=== PATIENT | male | born 1980 | race Two or more races ===

== ENCOUNTER → 2025-01-29 | Outpatient (CLI) | payer MEDICAID, SELFPAY ==
--- NOTE | 2025-01-29 09:30 | XR_ITS ---
Examination: Esophagram standard Upright PA chest single view Upright soft tissue lateral neck single view Fluoroscopy 28 spot fluoroscopic films of the esophagus Date and time: January 29, 2025 0934 hours INDICATIONS: Difficulty swallowing 1 years TECHNIQUE AND FINDINGS: Upright PA chest single view demonstrates normal heart size, lungs are clear. Soft tissue lateral neck demonstrates normal epiglottis mild prevertebral soft tissue prominence Patient swallowed thin barium with primary peristaltic esophageal waves noted, fluoroscopy 0.18 minutes 28 spot fluoroscopic films of the esophagus No constricting esophageal lesion, no esophageal ulcerations Mild intermittent gastroesophageal reflux. There is no stricture the gastroesophageal junction IMPRESSION: Mild intermittent gastroesophageal reflux.
== END | disposition home or self-care (01) ==
PROVIDERS: PCP Physician Assistant; Referring Provider Physician Assistant; Visit Provider Physician Assistant
DX: K21.9 Gastro-esophageal reflux disease without esophagitis (principal)
CPT/HCPCS: 74220; A4649